=== PATIENT | female | born 1955 | race Caucasian/White ===

== ENCOUNTER → 2017-01-07 | Outpatient (CLI) | payer OTHER | LOC: FIMAGING 11:23 | PROVIDERS: ATTEND Obstetrics & Gynecology Gynecology | DX: Z12.31 Encounter for screening mammogram for malignant neoplasm of breast (principal) | CPT/HCPCS: G0202 ==

== ENCOUNTER 2017-04-19 10:50 | Emergency (ER) | payer OTHER ==
[2017-04-19 11:02] VITALS: O2SAT 96
--- NOTE | 2017-04-19 11:11 | CPEKG ---
Heart Rate: 79 RR Interval: 759 P-R Interval: 176 QRSD Interval: 82 QT Interval: 356 QTC Interval: 409 P [place]: 46 QRS [place]: 43 T Wave [place]: -5 EKG Severity - NORMAL ECG - EKG Impression: SINUS RHYTHM Electronically Signed By: Umang Olsen 19-Apr-2017 14:51:13
--- NOTE | 2017-04-19 11:14 | EDPHY ---
H & P Stated Complaint: Intermittent vertigo since Tue; migratory pain L chest Time Seen by Provider: 04/19/17 11:13 HPI/ROS: HPI: This is a 61 year old female who presents with Chief Complaint: Intermittent vertigo since Tue; migratory pain L chest Location: Head Quality: Vertigo Duration: Since Tuesday Signs and Symptoms: + room spinning, no shortness of breath at rest, no shortness of breath on exertion, no cough, + chest pressure left substernal area , no palpitations, no lower extremity edema, no wheezing, no orthopnea, no paroxysmal nocturnal dyspnea, no fever, no injury/trauma, no hemoptysis Timing: Symptoms persist or worsen with standing for long periods of time Severity: Mild Context: Patient presents with a history vertigo that usually occurs around times that she travel. Tuesday afternoon she was lying in on her right side reading a book. As she turned her head from right to left, she immediately felt nauseous and the room started spinning. She laid until Tuesday when the symptoms slowly eased off. She did not take any medications. Around the same time of experiencing vertigo she noticed some left anterior lower chest pressure, nonradiating in nature. Denies shortness of breath/lower extremity edema/cough/fever. Patient reports that he has been going on with her activities of daily living over the weekend as well as Tuesday. Today she became frightened as symptoms have persisted for 4 days although she reports that the vertigo is not cyst at the time and the chest awareness and chest pressure is only 1-/10. She took 5 baby aspirins this morning. Her brother in his 40s of [place]. Ten years ago had a nuclear stress test performed by local Cardiology and showed no ischemia per patient. She has borderline hypertension and does not take regular blood pressure medications for this. She does travel on a plane approximately 3 per year. Denies indigestion. Status post appendectomy and cholecystectomy. Modifying Factors: Comment: ROS: see HPI Constitutional: No fever, no chills, no weight loss Eyes: No blurred vision Respiratory: No shortness of breath, no cough Cardiovascular: No chest pain, no palpitations, no lower extremity edema Gastrointestinal: No nausea, no vomiting, no diarrhea Genitourinary: No dysuria Extremities: No myalgias Neurologic: No weakness, no numbness Skin: No rashes Hematologic: No bruising, no bleeding MEDICAL/SURGICAL/SOCIAL HISTORY: Medical history: HTN +fam hx heart disease:father, siblings. Surgical history: Appendectomy, cholecystectomy Social history: Employed. CONSTITUTIONAL: Extremely well-appearing elderly white female, awake and alert , no obvious distress HEENT: Atraumatic and normocephalic, PERRL, EOMI. Tympanic membranes clear. Oropharynx clear, no exudate and moist pink mucosa. Airway patent. No lymphadenopathy. No meningismus. Cardiovascular: Normal S1/S2, regular rate, regular rhythm, without murmur rub or gallop. PULMONARY/CHEST: Symmetrical and nontender. Clear to auscultation bilaterally. Good air movement. No accessory muscle usage. ABDOMEN: Soft, nondistended, nontender, no rebound, no guarding, no peritoneal signs, no masses or organomegaly. No CVAT. EXTREMITIES: 2/2 pulses, strength 5/5, no deformities, no clubbing, no cyanosis or edema. NEUROLOGICAL: no focal neuro deficits. GCS 15. SKIN: Warm and dry, no erythema. no rash. Good capillary refill. Source: Patient Exam Limitations: No limitations - Personal History Current Tetanus Diphtheria and Acellular Pertussis (TDAP): Yes - Medical/Surgical History Other PMH: HTN. +fam hx heart disease:father, siblings - Social History Smoking Status: Never smoked Constitutional: Initial Vital Signs Temperature (C) 36.8 C 04/19/17 10:55 Heart Rate 88 04/19/17 10:55 Respiratory Rate 18 04/19/17 10:55 Blood Pressure 165/107 H 04/19/17 10:55 O2 Sat (%) 96 04/19/17 10:55 O2 Delivery Mode Room Air Allergies/Adverse Reactions: codeine Allergy (Mild, Verified 04/19/17 11:03) GI Home Medications: Medication Instructions Recorded Aspirin EC [Aspirin EC 81 mg (*)] 81 mg PO DAILY #30 tab 04/19/17 Meclizine HCl [Antivert] 25 mg PO Q6 PRN #12 tablet 04/19/17 Medical Decision Making - Diagnostics Imaging Results: Imaging Impressions Chest X-Ray 04/19/17 11:15 Impression: No acute findings in the chest. Chest/Thorax CTA 04/19/17 12:01 Impression: 1. No evidence of pulmonary embolic disease. 2. See above report for additional findings. Results called and discussed with Augusta Craig PAC on 04/19/2017 at 13:13 ED Course/Re-evaluation: Chest x-ray, EKG, labs ordered Offered patient Antivert for vertigo and patient politely declines as it has resolved. Patient took 5 baby aspirins this morning. VIET risk factor= low risk 1315: Called by radiologist and CTA chest shows no signs of pulmonary embolism , mildly dilated ascending aorta at approximately 3 cm, old granulomatous changes. first and Second troponin unremarkable Patient is appropriate to follow up with Cardiology outpatient for further testing including nuclear stress test. This patient was seen under the supervision of my secondary supervising physician. I evaluated care for this patient independently. Differential Diagnosis: Chest pain including but not limited to myocardial ischemia, pulmonary embolus, chest wall pain, pleural inflammation and pulmonary infectious causes. - Data Points Laboratory Results: Laboratory Results 04/19/17 11:14 04/19/17 11:14 04/19/17 04/19/17 04/19/17 13:30 11:14 11:14 WBC RBC Hgb Hct MCV MCH MCHC RDW Plt Count MPV Neut % (Auto) Lymph % (Auto) [place] % (Auto) Eos % (Auto) Baso % (Auto) Nucleat RBC Rel Count Absolute Neuts (auto) Absolute Lymphs (auto) Absolute Monos (auto) Absolute Eos (auto) Absolute Basos (auto) Absolute Nucleated RBC Immature Gran % Immature Gran # D-Dimer 0.80 ug/mLFEU H ug/mLFEU (0.00-0.50) Sodium 144 mEq/L mEq/L (135-145) Potassium 3.6 mEq/L mEq/L (3.5-5.2) Chloride 106 mEq/L mEq/L (97-110) Carbon Dioxide 23 mEq/l mEq/l (22-31) Anion Gap 15 mEq/L mEq/L (8-16) BUN 13 mg/dL mg/dL (7-23) Creatinine 0.8 mg/dL mg/dL (0.6-1.0) Estimated GFR > 60 Glucose 113 mg/dL H mg/dL (70-100) Calcium 9.5 mg/dL mg/dL (8.5-10.4) Total Bilirubin 0.6 mg/dL mg/dL (0.1-1.4) Conjugated Bilirubin 0.3 mg/dL mg/dL (0.0-0.5) Unconjugated Bilirubin 0.3 mg/dL mg/dL (0.0-1.1) AST 28 IU/L IU/L (14-46) ALT 31 IU/L IU/L (9-52) Alkaline Phosphatase 104 IU/L IU/L (38-126) Troponin I < 0.012 ng/mL ng/mL < 0.012 ng/mL ng/mL (0.000-0.034) (0.000-0.034) NT-Pro-B Natriuret Pep 198 pg/mL H pg/mL (0-125) Total Protein 7.2 g/dL g/dL (6.3-8.2) Albumin 4.4 g/dL g/dL (3.5-5.0) Lipase 61 IU/L IU/L (23-300) 04/19/17 11:14 WBC 8.07 10^3/uL 10^3/uL (3.80-9.50) RBC 4.64 10^6/uL 10^6/uL (4.18-5.33) Hgb 14.9 g/dL g/dL (12.6-16.3) Hct 41.4 % % (38.0-47.0) MCV 89.2 fL fL (81.5-99.8) MCH 32.1 pg pg (27.9-34.1) MCHC 36.0 g/dL g/dL (32.4-36.7) RDW 13.2 % % (11.5-15.2) Plt Count 220 10^3/uL 10^3/uL (150-400) MPV 9.6 fL fL (8.7-11.7) Neut % (Auto) 69.2 % % (39.3-74.2) Lymph % (Auto) 21.3 % % (15.0-45.0) [place] % (Auto) 7.8 % % (4.5-13.0) Eos % (Auto) 0.4 % L % (0.6-7.6) Baso % (Auto) 0.9 % % (0.3-1.7) Nucleat RBC Rel Count 0.0 % % (0.0-0.2) Absolute Neuts (auto) 5.59 10^3/uL 10^3/uL (1.70-6.50) Absolute Lymphs (auto) 1.72 10^3/uL 10^3/uL (1.00-3.00) Absolute Monos (auto) 0.63 10^3/uL 10^3/uL (0.30-0.80) Absolute Eos (auto) 0.03 10^3/uL 10^3/uL (0.03-0.40) Absolute Basos (auto) 0.07 10^3/uL 10^3/uL (0.02-0.10) Absolute Nucleated RBC 0.00 10^3/uL 10^3/uL (0-0.01) Immature Gran % 0.4 % % (0.0-1.1) Immature Gran # 0.03 10^3/uL 10^3/uL (0.00-0.10) D-Dimer Sodium Potassium Chloride Carbon Dioxide Anion Gap BUN Creatinine Estimated GFR Glucose Calcium Total Bilirubin Conjugated Bilirubin Unconjugated Bilirubin AST ALT Alkaline Phosphatase Troponin I NT-Pro-B Natriuret Pep Total Protein Albumin Lipase Departure - Departure Disposition: Home, Routine, Self-Care Clinical Impression: Vertigo, Atypical chest pain Condition: Good Instructions: Coronary Artery Disease (DC), Hypertension (ED) Additional Instructions: Please call [facility] for a follow up appointment for evaluation and determine if you would benefit from an outpatient nuclear stress test and/or echocardiogram.. Referrals: [facility] [Provider Group] - As per Instructions Prescriptions: Aspirin EC [Aspirin EC 81 mg (*)] 81 mg PO DAILY #30 tab Meclizine HCl [Antivert] 25 mg PO Q6 PRN #12 tablet PRN Reason: Dizziness
[2017-04-19 11:34] LABS: PLATELET COUNT 220 10^3/uL (150-400)
[2017-04-19] MEDS ORDERED: IOPAMIDOL (ISOVUE 370) 100 ML BTL IV ONE (12:03)
[2017-04-19 14:34] VITALS: BP 150/107; PULSE 70; RESP 15; TEMP 98.1
== END 2017-04-19 14:34 | disposition home or self-care (01) ==
DX: R42 Dizziness and giddiness (principal); R07.89 Other chest pain; I10 Essential (primary) hypertension; Z79.82 Long term (current) use of aspirin
CPT/HCPCS: Q9967

== ENCOUNTER → 2018-02-16 | Outpatient (CLI) | payer OTHER | LOC: FIMAGING 15:33 | PROVIDERS: ATTEND Obstetrics & Gynecology Gynecology | DX: Z12.31 Encounter for screening mammogram for malignant neoplasm of breast (principal) ==